=== PATIENT | male | born 1975 | race American Indian/Alaskan Native ===

== ENCOUNTER 2017-10-27 09:49 | Outpatient (CLI) | payer OTHER ==
--- NOTE | 2017-10-27 11:37 | Fluoroscopy Report ---
UPPER GI AIR CONTRAST: History: Right upper quadrant pain. Vomiting. FINDINGS: The patient ingested barium without difficulty. The esophageal contour is normal. There are no ulcerations or filling defects seen in the esophagus. There is normal esophageal motility. No hiatal hernia or reflux was witnessed during this exam. Gastric sleeve surgical changes are identified. The suture line is intact. There is no evidence for ulceration, extravasation, obstruction or mucosal defect. The duodenal bulb and duodenal sweep are unremarkable. IMPRESSION: Gastric sleeve surgical changes appear intact. No abnormality is detected.
== END 2017-10-27 09:50 | disposition home or self-care (01) ==
LOC: FLUORO 09:49
PROVIDERS: ATTEND Surgery
DX: R10.11 Right upper quadrant pain (principal); Z98.890 Other specified postprocedural states
CPT/HCPCS: 74247